=== PATIENT | male | born 1995 | race African-American/Black ===

== ENCOUNTER 2016-06-18 11:00 | Emergency (ER) | payer BC ==
[~2016-06-18] VITALS: Ht 180.3 cm; Wt 112.6 kg
[~2016-06-18 11:00] MED LIST: ADDERALL20 MG PO; IBUPROFEN600 MG PO; TENEX1 MG PO
[2016-06-18 14:26] VITALS: BP 169/99
[2016-06-18] MEDS ORDERED: VENTOLIN HFA18 GM IH (14:36)
== END 2016-06-18 14:59 | disposition home or self-care (01) ==
LOC: EME 11:00
DX: J30.2 Other seasonal allergic rhinitis (principal); R06.02 Shortness of breath; F90.9 Attention-deficit hyperactivity disorder, unspecified type
CPT/HCPCS: 71020; 93005; 99281; 99283